=== PATIENT | female | born 1940 | race Caucasian/White ===

== ENCOUNTER 2018-09-29 09:00 | Outpatient (CLI) | payer MEDICARE ==
--- NOTE | 2018-09-29 09:47 | CT ---
CT ABDOMEN AND PELVIS: Date: 09/29/18 HISTORY: Unexplained weight loss, history of colitis, appendectomy, and hysterectomy. TECHNIQUE: Axial CT imaging at 5 mm intervals through abdomen and pelvis with IV and oral contrast. C oronal reformatted imaging. FINDINGS: The imaged lung bases are unremarkable. No free intraperitoneal air or fluid is evident. The liver, gallbladder, spleen, pancreas, adrenal glands, and kidneys demonstrate no acute findings. Scattered areas of mild bilateral renal cortical thinning noted. Mild scattered diverticulosis of the sigmoid colon noted with no evidence for diverticulitis. The bowel demonstrates no evidence for inflammatory change or obstruction. Calcification noted in the region of the aortic and mitral valve. There is scattered atherosclerotic calcification of the abdominal aorta and its branches. There is no lymphadenopathy evident within the abdomen or pelvis. There is multilevel degenerative change seen within the lumbar spine with multilevel disc space narro wing, degenerative endplate change, and lower lumbar spine facet hypertrophic change. IMPRESSION: No acute findings. Numerous incidental findings as above. Transcribed Date/Time: 09/29/2018 10:01 AM
== END 2018-09-29 09:01 | disposition home or self-care (01) ==
LOC: CT 09:00
PROVIDERS: ATTEND Physician Assistant Medical
DX: R63.4 Abnormal weight loss (principal); K52.831 Collagenous colitis; N28.89 Other specified disorders of kidney and ureter; K57.30 Diverticulosis of large intestine without perforation or abscess without bleeding; I08.0 Rheumatic disorders of both mitral and aortic valves; I70.0 Atherosclerosis of aorta; M47.816 Spondylosis without myelopathy or radiculopathy, lumbar region; M48.061 Spinal stenosis, lumbar region without neurogenic claudication
CPT/HCPCS: 74177; 82565

== ENCOUNTER 2020-01-07 15:10 | Observation (INO) | payer MEDICARE ==
[2020-01-07 17:01] LABS: #Basophils 0.1 thou/uL (0.0-0.2); #Eosinphils 0.1 thou/uL (0.0-0.7); #Lymphocytes 2.3 thou/uL (1.20-3.40); #Neutrophils 6.7 thou/uL (1.40-6.50); %Basophils 1.4 % (0.0-1.0); %Eosinophils 0.7 % (0.0-10.0); %Lymphocytes 22.9 % (21.0-51.0); %Monocytes 9.5 % (0.0-10.0); %Neutrophils 65.5 % (42.0-75.0); Hemoglobin 13.3 g/dL (12.0-16.0); Mean Corpuscular HGB CONC 32.3 g/dL (32.0-36.0); Mean Corpuscular Hemoglobin 29.6 pg (27.0-31.0); Mean Corpuscular Volume 91.5 fL (78.0-98.0); Mean Platelet Volume 8.3 fL (7.4-10.4); Platelet Count 224 thou/uL (130-400); RBC Distribution Width 12.5 % (11.5-14.5); White Blood Cell (WBC) Count 10.2 thou/uL (4.8-10.8)
[2020-01-07 17:18] LABS: ALT (SGPT) 14 U/L (8-55); AST (SGOT) 20 U/L (5-34); Albumin 4.1 g/dL (3.4-4.8); Alkaline Phosphatase 65 U/L (40-110); Anion Gap 16 mmol/L (10-20); BUN (Urea Nitrogen) 18 mg/dL (9.8-20.1); Bilirubin, Total 0.4 mg/dL (0.2-1.2); Calc. Creatinine Clearance 0 mL/min (70-130); Calcium 9.2 mg/dL (7.8-10.44); Carbon Dioxide 23 mmol/L (23-31); Chloride 102 mmol/L (98-107); Estimated GFR-MDRD 62; Globulin 2.8 g/dL (2.4-3.5); Glucose 105 mg/dL (83-110); Potassium 3.8 mmol/L (3.5-5.1); Protein, Total 6.9 g/dL (6.0-8.3); Sodium 137 mmol/L (136-145)
[2020-01-07] MEDS ORDERED: Nitroglycerin 2% Ointment 1 INCH/1 GM Packet ONE (17:32)
[2020-01-07] MEDS ORDERED: Aspirin Chewable 81 MG TAB ONE (17:33)
--- NOTE | 2020-01-07 17:53 | RAD ---
Chest AP view INDICATION: History of Covid exposure and dyspnea with shortness of breath COMPARISON: Prior exam dated October 31, 2013 FINDINGS: Lungs: The lungs are clear Cardiac silhouette: The cardiomediastinal silhouette appears within normal limits. Pulmonary vasculature: Normal Pleural spaces: No pleural effusion or pneumothorax is demonstrated. Upper abdomen: No abnormality seen. Osseous structures: There is scattered degenerative and osteoarthritic change present. Additional findings: None. IMPRESSION: No acute cardiopulmonary abnormality.
[2020-01-07 18:40] LABS: CK (CPK) 173 U/L (29-168); Lipase 30 U/L (8-78)
[2020-01-07] MEDS ORDERED: Ondansetron PF 4 MG/2 ML Vial IVP PRN (19:02)
[2020-01-07] MEDS ORDERED: Bisacodyl 5 MG TAB PO PRN (19:02)
[2020-01-07] MEDS ORDERED: Acetaminophen 325 MG TAB PO PRN (19:02)
--- NOTE | 2020-01-07 19:06 | PDOC.HHP ---
Hospitalist HPI - History of Present Illness Shortness of breath History of Present Illness: Patient is a pleasant 79-year-old lady who was seen in the emergency room on January 07, 2020. 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 She was found to have a pulse of 35. She is supposed to have a 2D echocardiogram in another 5 days. She reports that she was feeling short of breath earlier today. She also reports having low heart rate. She denies any falls. She does report feeling lightheaded. She denies any chest pain. She presented to the emergency room because of shortness of breath and the low heart rate. In the emergency room, her heart rate has been consistently in the normal range. She has been referred to hospitalist service for admission for observation and for cardiology service input. ED Course: BP: 150/80, MAP: 103, Pulse: 77, Resp: 18, Temp: 98.3 (Oral), Pain: 0, O2 sat: 98 on (Room Air), Time: 01/07/2020 18:57. Hospitalist ROS - Review of Systems Cardiovascular: reports: other (Low heart rate). denies: chest pain, palpitations, orthopnea, paroxysmal noc. dyspnea, edema, light headedness Gastrointestinal: denies: nausea, vomiting, abdominal pain, diarrhea, constipation, melena, hematochezia Neurological: reports: other (Lightheadedness) All other systems reviewed; all pertinent +/- noted in HPI/Subj - Medication Medications: Allergies: Amlodipine, iodine and penicillins. Home medications: lisinopril Sat Jan 07, 2020 15:36 Holm RN, Daniel TABLET : Strength - 40 mg : ORAL Patient Dose: 1 tab(s) Oral once a day. carvedilol Sat Jan 07, 2020 15:36 Holm RN, Daniel TABLET : Strength - 6.25 mg : ORAL Patient Dose: 2 tab(s) Oral 2 times a day. Synthroid oral Sat Jan 07, 2020 15:36 Holm RN, Daniel TABLET : Strength - 75 mcg : ORAL Patient Dose: 88 mcg Oral once a day. Paxil Sat Jan 07, 2020 15:36 Holm RN, Daniel TABLET : Strength - 30 mg : ORAL Patient Dose: 1 tab(s) Oral once a day. aspirin oral Sat Jan 07, 2020 15:36 Holm RN, Daniel TABLET : Strength - 325 mg : ORAL Patient Dose: 81 mg Oral once a day. Fish Oil 360 mg-1,200 mg capsule Sat Jan 07, 2020 15:36 Holm RN, Daniel CAPSULE (HARD, SOFT, ETC.) : Strength - 360 mg-1,200 mg : ORAL Patient Dose: 1200 mg Oral once a day. budesonide oral Sat Jan 07, 2020 15:36 Holm RN, Daniel capsule,delayed,extend.release : Strength - 3 mg : ORAL Patient Dose: 6 mg Oral once a day (in the morning). cloNIDine Sat Jan 07, 2020 15:37 Holm RN, Daniel patch weekly : Strength - 0.1 mg/24 hour : TRANSDERMAL Patient Dose: once a day (at bedtime). diclofenac sodium topical Sat Jan 07, 2020 15:37 Holm RN, Daniel gel : Strength - 1 % : TOPICAL Patient Dose: every 12 hours PRN. famotidine oral Sat Jan 07, 2020 15:37 Holm RN, Daniel tablet : Strength - 40 mg : ORAL Patient Dose: 2 times a day. furosemide oral Sat Jan 07, 2020 15:38 Holm RN, Daniel tablet : Strength - 20 mg : ORAL Patient Dose: Unknown.4X WEEK. Integra Sat Jan 07, 2020 15:38 Holm RN, Daniel capsule : Strength - 125 mg-40 mg-3 mg : ORAL Patient Dose: once a day. NIFEdipine Sat Jan 07, 2020 15:39 Holm RN, Daniel tablet extended release : Strength - 30 mg : ORAL Patient Dose: once a day. K-Dur Sat Jan 07, 2020 15:40 Holm RN, Daniel tablet,ER particles/crystals : Strength - 20 mEq : ORAL Patient Dose: once a day. tiZANidine Sat Jan 07, 2020 15:40 Holm RN, Daniel capsule : Strength - 4 mg : ORAL Patient Dose: once a day (at bedtime). Hospitalist History - Past Medical History Other Medical History: Patient is a pleasant 79-year-old lady who was seen in the emergency room on January 07, 2020. 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 She was found to have a pulse of 35. She is supposed to have a 2D echocardiogram in another 5 days. She reports that she was feeling short of breath earlier today. She also reports having low heart rate. She denies any falls. She does report feeling lightheaded. She denies any chest pain. She presented to the emergency room because of shortness of breath and the low heart rate. In the emergency room, her heart rate has been consistently in the normal range. She has been referred to hospitalist service for admission for observation and for cardiology service input. - Exam General Appearance: awake alert Eye: anicteric sclera ENT: normocephalic atraumatic, moist mucosa Neck: supple, symmetric, no thyromegaly, no lymphadenopathy Heart: RRR, no gallops, no rubs, normal peripheral pulses Respiratory: CTAB, no wheezes, no rales, no ronchi Gastrointestinal: soft, non-tender, non-distended, normal bowel sounds Extremities: no cyanosis Skin: no rashes Neurological: cranial nerve grossly intact Psychiatric: normal affect, normal behavior, A&O x 3 Hospitalist Results - Labs Result Diagrams: 01/07/20 16:46 01/07/20 16:46 Lab results: WBC 10.2 thou/uL (4.8-10.8) 01/07/20 16:46 Hgb 13.3 g/dL (12.0-16.0) 01/07/20 16:46 Hct 41.2 % (36.0-47.0) 01/07/20 16:46 MCV 91.5 fL (78.0-98.0) 01/07/20 16:46 Plt Count 224 thou/uL (130-400) 01/07/20 16:46 Neutrophils % 65.5 % (42.0-75.0) 01/07/20 16:46 Sodium 137 mmol/L (136-145) 01/07/20 16:46 Potassium 3.8 mmol/L (3.5-5.1) 01/07/20 16:46 Chloride 102 mmol/L (98-107) 01/07/20 16:46 Carbon Dioxide 23 mmol/L (23-31) 01/07/20 16:46 BUN 18 mg/dL (9.8-20.1) 01/07/20 16:46 Creatinine 0.88 mg/dL (0.6-1.1) 01/07/20 16:46 Glucose 105 mg/dL (83-110) 01/07/20 16:46 Calcium 9.2 mg/dL (7.8-10.44) 01/07/20 16:46 Total Bilirubin 0.4 mg/dL (0.2-1.2) 01/07/20 16:46 AST 20 U/L (5-34) 01/07/20 16:46 ALT 14 U/L (8-55) 01/07/20 16:46 Alkaline Phosphatase 65 U/L (40-110) 01/07/20 16:46 Creatine Kinase 173 U/L (29-168) H 01/07/20 18:10 Troponin I 0.018 ng/mL (< 0.028) 01/07/20 16:46 B-Natriuretic Peptide 222.3 pg/mL (0-100) H 01/07/20 18:10 Serum Total Protein 6.9 g/dL (6.0-8.3) 01/07/20 16:46 Albumin 4.1 g/dL (3.4-4.8) 01/07/20 16:46 Lipase 30 U/L (8-78) 01/07/20 18:10 - EKG Interpretation EKG: EKG by my review shows normal sinus rhythm with frequent premature ventricular complexes. - Radiology Interpretation Chest x-ray Status: image reviewed by me Additional Comment: Chest AP view INDICATION: History of Covid exposure and dyspnea with shortness of breath COMPARISON: Prior exam dated October 31, 2013 FINDINGS: Lungs: The lungs are clear Cardiac silhouette: The cardiomediastinal silhouette appears within normal limits. Pulmonary vasculature: Normal Pleural spaces: No pleural effusion or pneumothorax is demonstrated. Upper abdomen: No abnormality seen. Osseous structures: There is scattered degenerative and osteoarthritic change present. Additional findings: None. IMPRESSION: No acute cardiopulmonary abnormality. Hospitalist H&P A/P - Problem (1) Shortness of breath Code(s): R06.02 - SHORTNESS OF BREATH Status: Acute (2) Bradycardia Code(s): R00.1 - BRADYCARDIA, UNSPECIFIED Status: Acute (3) Dyslipidemia Code(s): E78.5 - HYPERLIPIDEMIA, UNSPECIFIED Status: Chronic (4) Crohn's disease Code(s): K50.90 - CROHN'S DISEASE, UNSPECIFIED, WITHOUT COMPLICATIONS Status: Chronic (5) Hypertension Code(s): I10 - ESSENTIAL (PRIMARY) HYPERTENSION Status: Chronic
[2020-01-08 04:51] LABS: #Basophils 0.1 thou/uL (0.0-0.2); #Eosinphils 0.1 thou/uL (0.0-0.7); #Monocytes 0.8 thou/uL (0.11-0.59); #Neutrophils 3.8 thou/uL (1.40-6.50); %Basophils 0.9 % (0.0-1.0); %Eosinophils 1.3 % (0.0-10.0); %Lymphocytes 29.6 % (21.0-51.0); %Monocytes 12.1 % (0.0-10.0); %Neutrophils 56.2 % (42.0-75.0); Mean Corpuscular HGB CONC 32.6 g/dL (32.0-36.0); Mean Corpuscular Hemoglobin 30.3 pg (27.0-31.0); Mean Corpuscular Volume 92.8 fL (78.0-98.0); Platelet Count 211 thou/uL (130-400); RBC Distribution Width 12.7 % (11.5-14.5); Red Blood Cell (RBC) Count 3.96 mill/uL (4.20-5.40); White Blood Cell (WBC) Count 6.8 thou/uL (4.8-10.8)
[2020-01-08 05:13] LABS: Anion Gap 11 mmol/L (10-20); BUN (Urea Nitrogen) 16 mg/dL (9.8-20.1); Calc. Creatinine Clearance 64 mL/min (70-130); Calcium 8.7 mg/dL (7.8-10.44); Carbon Dioxide 27 mmol/L (23-31); Chloride 106 mmol/L (98-107); Estimated GFR-MDRD 60; Glucose 95 mg/dL (83-110); Sodium 140 mmol/L (136-145)
[2020-01-08] MEDS ORDERED: VIT C PO SCH (09:00)
[2020-01-08] MEDS ORDERED: Loratadine 10 MG TAB PO SCH (09:00)
[2020-01-08] MEDS ORDERED: Lisinopril 20 MG TAB PO SCH (09:00)
[2020-01-08] MEDS ORDERED: Famotidine 20 MG TAB PO SCH (09:00)
[2020-01-08] MEDS ORDERED: Aspirin 81 mg Enteric Coated Tablet PO SCH (09:00)
[2020-01-08] MEDS ORDERED: Enoxaparin Sodium 40 MG/0.4 ML SYRINGE SC SCH (09:00)
[2020-01-08] MEDS ORDERED: IRON FUM PS CMP PO SCH (09:00)
[2020-01-08] MEDS ORDERED: NIACIN PO SCH (09:00)
[2020-01-08] MEDS ORDERED: FLU VACC QS2020-21(65YR UP)/PF 240 MCG/0.7 ML SYRINGE IM ONE (09:00)
[2020-01-08] MEDS ORDERED: Carvedilol 6.25 MG TAB PO SCH ×2 (12:00→17:00)
--- NOTE | 2020-01-08 12:26 | CON ---
DATE OF CONSULTATION: HISTORY OF PRESENT ILLNESS: The patient is 79-year-old woman, who presents with increasing dyspnea. The patient has a history of hypertension. . She was recently noted to have increasing ventricular ectopy. The patient denies having any lightheadedness or dyspnea. The patient presented to the emergency room with shortness of breath. She denied having any chest discomfort. The patient denied having any lightheaded or dizziness. PAST MEDICAL HISTORY: 1. Hypertension. 2. Thyroid disorder. 3. Depression. PAST SURGICAL HISTORY: Hysterectomy, foot surgery, shoulder surgery, cataract surgery, and carpal tunnel syndrome surgery. SOCIAL HISTORY: Nonsmoker. ALLERGIES: PENICILLIN AND AMLODIPINE. PHYSICAL EXAMINATION: GENERAL: Well-developed woman, in no acute distress. VITAL SIGNS: Blood pressure was 168/75. NECK: No jugular venous distention. LUNGS: Clear to auscultation. HEART: Regular rate and rhythm. Normal S1 and S2 with 2/6 systolic murmur. ABDOMEN: Nondistended. EXTREMITIES: Show no edema. VASCULAR: Radial pulses are 2+. LABORATORY DATA: Sodium 140, potassium 4.0, chloride 106, bicarbonate 27, BUN 16, creatinine 0.91, and glucose 60. white blood cell count was 6.8, hemoglobin 12.0, hematocrit 36.7, and platelets 211. EKG sinus rhythm with ventricular bigeminy and poor R-wave progression. Chest x-ray revealed normal cardiac silhouette with normal lung dan. IMPRESSION: 1. Shortness of breath. 2. Hypertension, poorly controlled. 3. Ventricular bigeminy. PLAN: This patient presented with bradycardia and dyspnea. She had ventricular bigeminy. From a cardiac standpoint. I would decrease the dose of her Coreg. 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 Job ID: [id number] [facility]
--- NOTE | 2020-01-08 15:18 | PDOC.DS.DS ---
Provider - Provider Date of Admission: 01/07/20 18:13 Date of Discharge: 01/08/20 Admitting Provider: Dave Briscoe MD Consultations: Cardiology Primary Care Physician: CAROL SETH MD Course - Hospital Course Hospital Course: Discharge diagnosis: 1. Symptomatic bradycardia 2. Shortness of breath Hospital course: Patient is a pleasant 79-year-old lady who was admitted to the hospital on January 07, 2020 for symptomatic bradycardia. She was monitored on telemetry. She did not have further episodes of bradycardia. She was seen by cardiology service. Her Coreg dose was decreased to 6.25 mg 2 times a day. She has been cleared for discharge by cardiology service. At the time of this dictation, her COVID-19 test result was pending. She is advised to follow-up with her primary care provider for the same. Many thanks for allowing me to participate in your patient's care. Please feel free to contact me with any questions or concerns. Resuscitation Status: 01/07/20 19:02 Resuscitation Status Routine Resuscitation Status: FULL: Full Resuscitation Discussed with: Patient - Labs Lab Results: 01/08/20 04:22 01/08/20 04:22 Abnormal Lab Results - Last 48 hrs 01/07/20 16:46: Basophils % 1.4 H, Neutrophils # 6.7 H, Monocytes # 1.0 H 01/07/20 18:10: B-Natriuretic Peptide 222.3 H 01/07/20 18:10: Creatine Kinase 173 H 01/08/20 04:22: RBC 3.96 L, Monocytes % 12.1 H, Monocytes # 0.8 H - Physical Exam Vitals: Vital Signs (12 hours) Temp Pulse Resp BP Pulse Ox 01/08/20 12:10 97.9 F 69 16 129/88 97 01/08/20 07:52 97.9 F 61 16 168/73 H 97 01/08/20 04:00 98.5 F 71 20 154/74 H 98 Weight Weight 175 lb Physical Exam: The patient was seen and examined on the day of discharge. She denies chest pain or shortness of breath. Vital signs are stable. S1 and S2 are heard, regular. Lungs are clear to auscultation bilaterally. Problem - Problem (1) Bradycardia Code(s): R00.1 - BRADYCARDIA, UNSPECIFIED Status: Acute (2) Dyslipidemia Code(s): E78.5 - HYPERLIPIDEMIA, UNSPECIFIED Status: Chronic (3) Crohn's disease Code(s): K50.90 - CROHN'S DISEASE, UNSPECIFIED, WITHOUT COMPLICATIONS Status: Chronic (4) Hypertension Code(s): I10 - ESSENTIAL (PRIMARY) HYPERTENSION Status: Chronic (5) Shortness of breath Code(s): R06.02 - SHORTNESS OF BREATH Status: Resolved Plan - Discharge Medications Prescriptions: Carvedilol [Coreg] 6.25 mg PO BID-WM #60 tab Home Medications: Medication Instructions Recorded Confirmed Type Aspirin [Ecotrin Low Strength] 81 mg PO DAILY 01/07/20 01/08/20 History Budesonide [Budesonide ER] 3 mg PO DAILY 01/07/20 01/08/20 History Famotidine 40 mg PO BID 01/07/20 01/08/20 History Fexofenadine HCl [Tash Allergy] 180 mg PO DAILY 01/07/20 01/08/20 History Fish Oil/DHA/EPA [Fish Oil 1,200 1 cap PO HS 01/07/20 01/08/20 History mg Fish Oil] Iron Fum,Ps Cmp/Vit C/Niacin 1 cap PO DAILY 01/07/20 01/08/20 History [Integra] Levothyroxine Sodium 88 mcg PO DAILY 01/07/20 01/08/20 History Lisinopril 40 mg PO DAILY 01/07/20 01/07/20 History NIFEdipine [Nifedipine ER] 30 mg PO HS 01/07/20 01/08/20 History PARoxetine HCl [Paxil] 30 mg PO HS 01/07/20 01/07/20 History Potassium Chloride [K-Dur] 20 meq PO PRN PRN 01/07/20 01/08/20 History Vit A/Vit C/Vit E/Zinc/Copper 2 tablet PO HS 01/07/20 01/08/20 History [PreserVision AREDS] cloNIDine [Catapres] 0.1 mg PO HS 01/07/20 01/08/20 History Carvedilol [Coreg] 6.25 mg PO BID-WM #60 tab 01/08/20 Rx Allergies: Penicillins Allergy (Intermediate, Verified 01/07/20 23:16) Rash shrimp Allergy (Intermediate, Verified 01/07/20 23:16) Nausea n/v amlodipine Allergy (Verified 01/07/20 23:16) not sure reaction iodine Allergy (Verified 01/07/20 23:16) allergic to shrimp- n/v; unsure about iodine clindamycin Adverse Reaction (Unknown, Verified 01/08/20 06:25) Diarrhea - Discharge Instructions Discharge Instructions:: Follow-up with your primary care provider for COVID-19 test result. Activity:: Activity as Tolerated Nourishment:: Heart Healthy Diet - Follow up Plan Referrals: CAROL SETH [Primary Care Provider] - 3 Days Disposition: HOME
[2020-01-08 16:49] VITALS: BP 137/67; TEMP 97.6
[2020-01-08] MEDS ORDERED: PARoxetine 20 MG TAB PO SCH (21:00)
[2020-01-08] MEDS ORDERED: cloNIDine 0.1 MG TAB PO SCH (21:00)
[2020-01-08] MEDS ORDERED: NIFEdipine XL 30 MG TAB PO SCH (21:00)
[2020-01-08] MEDS ORDERED: Multivit, Chewable SF 1 TAB PO SCH (21:00)
[2020-01-08] MEDS ORDERED: Fish Oil 1,000 MG CAP PO SCH (21:00)
[2020-01-09] MEDS ORDERED: Levothyroxine Sodium 88 MCG TAB PO SCH (06:00)
[2020-01-09 12:52] LABS: SARS-CoV-2 MS2 Positive; SARS-CoV-2 N Gene Negative; SARS-CoV-2 S Gene Negative; SARS-CoV-2 by NAA Not Detected (NotDetected); SARS-CoV-2 orf1ab Negative
== END 2020-01-08 16:50 | disposition home or self-care (01) ==
LOC: ERS 15:10 → ERHOLD 18:13 → 2NO 22:53
PROVIDERS: ADMIT Internal Medicine; ATTEND Internal Medicine
DX: R00.1 Bradycardia, unspecified (principal); R06.02 Shortness of breath; I10 Essential (primary) hypertension; E78.5 Hyperlipidemia, unspecified; K50.90 Crohn's disease, unspecified, without complications; R00.8 Other abnormalities of heart beat; E07.9 Disorder of thyroid, unspecified; F32.9 Major depressive disorder, single episode, unspecified; Z79.82 Long term (current) use of aspirin; Z79.899 Other long term (current) drug therapy; Z88.0 Allergy status to penicillin; Z88.1 Allergy status to other antibiotic agents; Z88.8 Allergy status to other drugs, medicaments and biological substances; Z91.013 Allergy to seafood; Z91.041 Radiographic dye allergy status; Z20.828 Contact with and (suspected) exposure to other viral communicable diseases
CPT/HCPCS: 71045; 80048; 82550; 83690; 83880; 84484; 85025; 85379; 93005; 96372; 99285; G0378 ×3; U0003; 36415; 80053; 84443; 87635; J1650

== ENCOUNTER 2020-08-02 12:20 | Outpatient (CLI) | payer MEDICARE ==
[2020-08-02 14:24] LABS: #Basophils 0.1 10x3/uL (0.0-0.2); #Eosinphils 0.1 10x3/uL (0.0-0.5); #Monocytes 0.9 10x3/uL (0.0-1.1); #Neutrophils 6.3 10x3/uL (1.5-8.4); %Basophils 0.7 % (0.0-2.0); %Eosinophils 1.4 % (0.0-6.0); %Lymphocytes 19.3 % (18.0-47.0); %Monocytes 9.3 % (0.0-10.0); %Neutrophils 68.9 % (40.0-75.0); Hemoglobin 12.5 g/dL (12.0-15.5); Mean Corpuscular HGB CONC 31.9 g/dL (32.0-36.0); Mean Platelet Volume 10.8 fl (7.4-10.4); Platelet Count 247 10x3/uL (150-450); RBC Distribution Width 13.3 % (11.5-14.5); Red Blood Cell (RBC) Count 4.31 10x6/uL (3.90-5.03); White Blood Cell (WBC) Count 9.2 10x3/uL (3.5-10.5)
[2020-08-02 14:36] LABS: Anion Gap 13 mmol/L (10-20); BUN (Urea Nitrogen) 15 mg/dL (9.8-20.1); Calc. Creatinine Clearance 0 mL/min (70-130); Calcium 9.6 mg/dL (7.8-10.44); Carbon Dioxide 27 mmol/L (23-31); Chloride 102 mmol/L (98-107); Glucose 89 mg/dL (83-110); Potassium 4.3 mmol/L (3.5-5.1); Sodium 138 mmol/L (136-145)
[2020-08-03 00:58] LABS: SARS-CoV-2 PCR by NAA Not Detected (NotDetected)
== END 2020-08-02 12:21 | disposition home or self-care (01) ==
LOC: LABBT 12:20
PROVIDERS: ATTEND Internal Medicine Cardiovascular Disease
DX: Z01.812 Encounter for preprocedural laboratory examination (principal); Z20.822 Contact with and (suspected) exposure to COVID-19; I48.19 Other persistent atrial fibrillation
CPT/HCPCS: 80048; 85025; U0003; U0005; 87635

== ENCOUNTER 2020-08-07 07:22 | Day surgery (SDC) | payer MEDICARE ==
[2020-08-07] MEDS ORDERED: PROPOFOL 20 ML ONE (11:17)
[2020-08-07] MEDS ORDERED: Lidocaine 1% PF 5 ML VIAL ONE (11:17)
== END 2020-08-07 12:50 | disposition home or self-care (01) ==
LOC: CCL 07:22
PROVIDERS: ATTEND Internal Medicine Cardiovascular Disease
PROC: 5A2204Z Restoration of Cardiac Rhythm, Single (ICD-10-PCS; principal; 2020-08-07)
DX: I48.19 Other persistent atrial fibrillation (principal); I49.3 Ventricular premature depolarization; I10 Essential (primary) hypertension; E78.00 Pure hypercholesterolemia, unspecified; I25.10 Atherosclerotic heart disease of native coronary artery without angina pectoris; E78.5 Hyperlipidemia, unspecified; Z79.01 Long term (current) use of anticoagulants; Z79.899 Other long term (current) drug therapy; Z88.0 Allergy status to penicillin; Z88.1 Allergy status to other antibiotic agents; Z88.8 Allergy status to other drugs, medicaments and biological substances; Z91.013 Allergy to seafood; Z91.041 Radiographic dye allergy status
CPT/HCPCS: 92960; J2704

== ENCOUNTER 2021-04-08 10:42 | Inpatient (IN) | payer MEDICARE ==
[~2021-04-08 10:42] MED LIST: Aspirin Chewable 81 MG TAB ONE; Heparin 10,000 UNITS/ 10 ML VIAL ONE; Iopamidol 370 76% 100 ML VIAL ONE; Iopamidol 370 76% 50 ML VIAL FS ONE
[2021-04-08] MEDS ORDERED: Diltiazem 125 MG/25 ML ONE (11:01)
[2021-04-08] MEDS ORDERED: Adenosine 6 MG/2 ML VIAL ONE ×2 (11:01→12:27)
[2021-04-08] MEDS ORDERED: Heparin 10,000 UNITS/ 10 ML VIAL ONE (11:37)
[2021-04-08] MEDS ORDERED: Midazolam HCl 2 mg/2 ml Vial ONE (11:42)
[2021-04-08] MEDS ORDERED: Atropine Sulfate 1 mg/1 ml Vial ONE (11:42)
[2021-04-08] MEDS ORDERED: Ondansetron PF 4 MG/2 ML Vial ONE ×2 (11:42→12:07)
[2021-04-08] MEDS ORDERED: Fentanyl 100 MCG/2 ML VIAL ONE (11:42)
[2021-04-08 11:44] LABS: #Eosinphils 0.1 thou/uL (0.0-0.7); #Lymphocytes 1.5 thou/uL (1.20-3.40); #Monocytes 0.5 thou/uL (0.11-0.59); #Neutrophils 9.5 thou/uL (1.40-6.50); %Basophils 0.2 % (0.0-1.0); %Eosinophils 0.5 % (0.0-10.0); %Lymphocytes 13.2 % (21.0-51.0); %Monocytes 4.3 % (0.0-10.0); %Neutrophils 81.8 % (42.0-75.0); Hemoglobin 12.8 g/dL (12.0-16.0); Mean Corpuscular HGB CONC 31.5 g/dL (32.0-36.0); Mean Corpuscular Hemoglobin 29.2 pg (27.0-31.0); Mean Corpuscular Volume 92.7 fL (78.0-98.0); Mean Platelet Volume 7.8 fL (7.4-10.4); Platelet Count 289 thou/uL (130-400); RBC Distribution Width 12.1 % (11.5-14.5); Red Blood Cell (RBC) Count 4.39 mill/uL (4.20-5.40); White Blood Cell (WBC) Count 11.6 thou/uL (4.8-10.8)
[2021-04-08 11:54] LABS: CRP (Inflammatory) 0.59 mg/dL (= or < 0.5)
[2021-04-08 12:05] LABS: ALT (SGPT) 12 U/L (8-55); AST (SGOT) 24 U/L (5-34); Albumin 4.3 g/dL (3.4-4.8); Alkaline Phosphatase 86 U/L (40-110); Anion Gap 13 mmol/L (10-20); BUN (Urea Nitrogen) 14 mg/dL (9.8-20.1); Bilirubin, Total 0.7 mg/dL (0.2-1.2); Calc. Creatinine Clearance 0 mL/min (70-130); Calcium 10.1 mg/dL (7.8-10.44); Carbon Dioxide 26 mmol/L (23-31); Chloride 102 mmol/L (98-107); Globulin 3.5 g/dL (2.4-3.5); Glucose 140 mg/dL (83-110); Potassium 3.7 mmol/L (3.5-5.1); Protein, Total 7.8 g/dL (5.8-8.1); Sodium 137 mmol/L (136-145)
[2021-04-08 12:06] LABS: INR-International Normal Ratio 1.2
[2021-04-08 12:07] LABS: PTT 40.2 sec (22.9-36.1)
[2021-04-08] MEDS ORDERED: Atropine Sulfate 1 mg/10 ml Syringe ONE (12:07)
[2021-04-08] MEDS ORDERED: Clopidogrel Bisulfate 300 MG TAB ONE (12:21)
[2021-04-08] MEDS ORDERED: Zolpidem Tartrate 5 MG TAB PO PRN (12:43)
[2021-04-08] MEDS ORDERED: Nitroglycerin 0.4 MG TAB (25 Tab Bottle) SL PRN (12:43)
[2021-04-08] MEDS ORDERED: Sodium Chloride 0.9% 1,000 ML IV SCH ×2 (12:45→17:27)
[2021-04-08] MEDS ORDERED: Morphine 4 MG/ML VIAL SLOW IVP PRN (13:02)
[2021-04-08 13:14] LABS: Cardiac Risk 2.8 (Less than 4.5)
[2021-04-08 13:48] LABS: CKMB 12.7 ng/mL (0-6.6)
[2021-04-08 14:18] VITALS: BMI 217.2
[2021-04-08 15:22] LABS: SARS-CoV-2 PCR by NAA Not Detected (NotDetected)
[2021-04-08] MEDS: Carvedilol 6.25 MG TAB PO SCH (17:14)
[2021-04-08 19:03] LABS: Troponin I 16.822 ng/mL (< 0.028)
[2021-04-08] MEDS: Famotidine 20 MG TAB PO SCH (20:52)
[2021-04-08] MEDS ORDERED: Atorvastatin Calcium 40 MG TAB PO SCH (21:00)
[2021-04-08] MEDS ORDERED: Spironolactone 25 MG TAB PO SCH (22:00)
[2021-04-08] MEDS ORDERED: Furosemide 20 MG/2 ML VIAL SLOW IVP SCH (22:00)
[2021-04-09 00:51] LABS: Troponin I 22.448 ng/mL (< 0.028)
[2021-04-09 04:11] LABS: #Lymphocytes 1.7 thou/uL (1.20-3.40); #Neutrophils 6.6 thou/uL (1.40-6.50); %Basophils 0.3 % (0.0-1.0); %Eosinophils 0.1 % (0.0-10.0); %Lymphocytes 17.8 % (21.0-51.0); %Monocytes 10.7 % (0.0-10.0); Hemoglobin 11.3 g/dL (12.0-16.0); Mean Corpuscular HGB CONC 32.1 g/dL (32.0-36.0); Mean Corpuscular Hemoglobin 29.9 pg (27.0-31.0); Mean Corpuscular Volume 92.9 fL (78.0-98.0); Mean Platelet Volume 7.5 fL (7.4-10.4); Platelet Count 267 thou/uL (130-400); RBC Distribution Width 12.2 % (11.5-14.5); Red Blood Cell (RBC) Count 3.77 mill/uL (4.20-5.40); White Blood Cell (WBC) Count 9.3 thou/uL (4.8-10.8)
[2021-04-09 04:27] LABS: ALT (SGPT) 20 U/L (8-55); AST (SGOT) 111 U/L (5-34); Albumin 3.7 g/dL (3.4-4.8); Alkaline Phosphatase 72 U/L (40-110); Anion Gap 11 mmol/L (10-20); BUN (Urea Nitrogen) 9 mg/dL (9.8-20.1); Bilirubin, Total 0.8 mg/dL (0.2-1.2); Calc. Creatinine Clearance 88 mL/min (70-130); Calcium 8.6 mg/dL (7.8-10.44); Carbon Dioxide 24 mmol/L (23-31); Chloride 104 mmol/L (98-107); Globulin 2.6 g/dL (2.4-3.5); Glucose 126 mg/dL (83-110); Potassium 3.7 mmol/L (3.5-5.1); Protein, Total 6.3 g/dL (5.8-8.1); Sodium 135 mmol/L (136-145)
[2021-04-09] MEDS ORDERED: NIFEdipine XL 60 MG TAB PO SCH (09:00)
[2021-04-09] MEDS ORDERED: Fentanyl 100 MCG/2 ML VIAL ONE ×2 (09:02→11:58)
[2021-04-09] MEDS: Enalaprilat Dihydrate 1.25 MG/ML VIAL SLOW IVP SCH ×2 (09:27→16:05)
[2021-04-09] MEDS: Clopidogrel Bisulfate 75 MG TAB PO SCH (09:28)
[2021-04-09] MEDS: Famotidine 20 MG TAB PO SCH ×2 (09:28→20:43)
[2021-04-09] MEDS: Carvedilol 6.25 MG TAB PO SCH ×2 (09:28→17:35)
[2021-04-09] MEDS: Aspirin Chewable 81 MG TAB PO SCH (09:28)
[2021-04-09] MEDS: Lisinopril 10 MG TAB PO SCH ×2 (09:57→20:42)
[2021-04-09] MEDS ORDERED: Fentanyl 100 MCG/2 ML VIAL SLOW IVP SCH ×2 (10:00→11:15)
[2021-04-09] MEDS ORDERED: Digoxin 0.5 MG/2 ML AMP ONE (11:40)
[2021-04-09] MEDS ORDERED: Protamine Sulfate 50 MG/5 ML VIAL ONE (11:52)
[2021-04-09] MEDS ORDERED: Heparin 5,000 UNITS/ML VIAL ONE (11:52)
[2021-04-09] MEDS ORDERED: Ondansetron PF 4 MG/2 ML Vial ONE (12:14)
[2021-04-09] MEDS ORDERED: Rocuronium Bromide 10 MG/ML (10ML VIAL) ONE (12:14)
[2021-04-09] MEDS ORDERED: Succinylcholine 200 MG/10 ml SYRINGE FS ONE (12:14)
[2021-04-09] MEDS ORDERED: Dexamethasone 20 MG/5 ML VIAL ONE (12:14)
[2021-04-09] MEDS ORDERED: Glycopyrrolate 0.2 MG/ML 5 ML SYRINGE ONE (12:14)
[2021-04-09] MEDS ORDERED: Lidocaine 1% PF 5 ML VIAL ONE (12:14)
[2021-04-09] MEDS ORDERED: Xylocaine 1% w/ Epi 1:100K 10 ML VIAL ONE (12:31)
[2021-04-09] MEDS ORDERED: Ondansetron PF 4 MG/2 ML Vial IVP PRN (13:14)
[2021-04-09] MEDS ORDERED: Fentanyl 100 MCG/2 ML VIAL SLOW IVP PRN (17:52)
[2021-04-09] MEDS ORDERED: Digoxin 0.5 MG/2 ML AMP SLOW IVP SCH (18:15)
[2021-04-09] MEDS: Sodium Chloride 0.9% 1,000 ML IV SCH (18:28)
[2021-04-09 18:34] LABS: #Lymphocytes 0.8 thou/uL (1.20-3.40); #Monocytes 0.4 thou/uL (0.11-0.59); #Neutrophils 14.1 thou/uL (1.40-6.50); %Basophils 0.2 % (0.0-1.0); %Eosinophils 0.1 % (0.0-10.0); %Lymphocytes 4.9 % (21.0-51.0); %Monocytes 2.4 % (0.0-10.0); %Neutrophils 92.4 % (42.0-75.0); Hemoglobin 8.8 g/dL (12.0-16.0); Mean Corpuscular HGB CONC 31.3 g/dL (32.0-36.0); Mean Corpuscular Hemoglobin 30.1 pg (27.0-31.0); Mean Corpuscular Volume 96.1 fL (78.0-98.0); Mean Platelet Volume 7.5 fL (7.4-10.4); Platelet Count 255 thou/uL (130-400); Red Blood Cell (RBC) Count 2.93 mill/uL (4.20-5.40); White Blood Cell (WBC) Count 15.2 thou/uL (4.8-10.8)
[2021-04-09] MEDS: Rosuvastatin 20 MG TAB PO SCH (20:43)
[2021-04-10] MEDS: Sodium Chloride 0.9% 1,000 ML IV SCH (06:21)
[2021-04-10] MEDS ORDERED: Digoxin 0.5 MG/2 ML AMP SLOW IVP SCH (08:45)
[2021-04-10] MEDS: Famotidine 20 MG TAB PO SCH ×2 (08:56→20:18)
[2021-04-10] MEDS: Clopidogrel Bisulfate 75 MG TAB PO SCH (08:56)
[2021-04-10] MEDS: Aspirin Chewable 81 MG TAB PO SCH (08:56)
[2021-04-10 09:24] LABS: Hemoglobin 7.2 g/dL (12.0-16.0); Mean Corpuscular HGB CONC 31.9 g/dL (32.0-36.0); Mean Corpuscular Hemoglobin 29.7 pg (27.0-31.0); Mean Corpuscular Volume 93.1 fL (78.0-98.0); Mean Platelet Volume 7.7 fL (7.4-10.4); Platelet Count 222 thou/uL (130-400); RBC Distribution Width 11.9 % (11.5-14.5); Red Blood Cell (RBC) Count 2.43 mill/uL (4.20-5.40); White Blood Cell (WBC) Count 15.1 thou/uL (4.8-10.8)
[2021-04-10 09:49] LABS: #Basophils 0.1 thou/uL (0.0-0.2); #Lymphocytes 2.2 thou/uL (1.20-3.40); #Monocytes 1.7 thou/uL (0.11-0.59); #Neutrophils 11.1 thou/uL (1.40-6.50); %Basophils 0.3 % (0.0-1.0); %Eosinophils 0.1 % (0.0-10.0); %Lymphocytes 14.8 % (21.0-51.0); %Monocytes 11.4 % (0.0-10.0); %Neutrophils 73.4 % (42.0-75.0); Band 6 % (5-11); Hypochromia SLIGHT = 6-15 cells (100X) (0-5/hpf); Lymphocytes 16 % (21-51); MDiff Complete? YES; Monocytes 8 % (0-10); Neutrophil 70 % (42-75); Platelet Morphology Comment Appears Adequate
[2021-04-10] MEDS: Carvedilol 6.25 MG TAB PO SCH (13:12)
[2021-04-10] MEDS: Acetaminophen 325 MG TAB PO PRN (15:40)
[2021-04-10] MEDS ORDERED: Furosemide 20 MG/2 ML VIAL SLOW IVP SCH (18:00)
[2021-04-10 18:35] LABS: #Basophils 0.1 thou/uL (0.0-0.2); #Eosinphils 0.1 thou/uL (0.0-0.7); #Lymphocytes 2.6 thou/uL (1.20-3.40); #Monocytes 1.9 thou/uL (0.11-0.59); #Neutrophils 9.7 thou/uL (1.40-6.50); %Basophils 0.7 % (0.0-1.0); %Eosinophils 0.4 % (0.0-10.0); %Monocytes 13.4 % (0.0-10.0); %Neutrophils 67.5 % (42.0-75.0); Hemoglobin 8.5 g/dL (12.0-16.0); Mean Corpuscular HGB CONC 33.2 g/dL (32.0-36.0); Mean Corpuscular Hemoglobin 31.7 pg (27.0-31.0); Mean Corpuscular Volume 95.6 fL (78.0-98.0); Mean Platelet Volume 7.7 fL (7.4-10.4); Platelet Count 201 thou/uL (130-400); RBC Distribution Width 12.1 % (11.5-14.5); Red Blood Cell (RBC) Count 2.66 mill/uL (4.20-5.40); White Blood Cell (WBC) Count 14.4 thou/uL (4.8-10.8)
[2021-04-10] MEDS: Rosuvastatin 20 MG TAB PO SCH (20:18)
[2021-04-11] MEDS: Acetaminophen 325 MG TAB PO PRN ×3 (02:31→21:00)
[2021-04-11 03:42] LABS: #Basophils 0.1 thou/uL (0.0-0.2); #Eosinphils 0.1 thou/uL (0.0-0.7); #Lymphocytes 1.8 thou/uL (1.20-3.40); #Monocytes 1.5 thou/uL (0.11-0.59); #Neutrophils 7.8 thou/uL (1.40-6.50); %Basophils 0.6 % (0.0-1.0); %Eosinophils 0.8 % (0.0-10.0); %Neutrophils 69.6 % (42.0-75.0); Hemoglobin 8.1 g/dL (12.0-16.0); Mean Corpuscular Volume 94.1 fL (78.0-98.0); Mean Platelet Volume 7.7 fL (7.4-10.4); Platelet Count 192 thou/uL (130-400); Red Blood Cell (RBC) Count 2.53 mill/uL (4.20-5.40); White Blood Cell (WBC) Count 11.2 thou/uL (4.8-10.8)
[2021-04-11 04:05] LABS: Digoxin 0.15 ng/mL (0.8-2.0)
[2021-04-11] MEDS: Famotidine 20 MG TAB PO SCH ×2 (07:47→20:59)
[2021-04-11] MEDS: Clopidogrel Bisulfate 75 MG TAB PO SCH (07:49)
[2021-04-11] MEDS: Aspirin Chewable 81 MG TAB PO SCH (07:50)
[2021-04-11] MEDS ORDERED: Potassium Chloride 20 MEQ TAB PO SCH (08:45)
[2021-04-11] MEDS ORDERED: Furosemide 20 MG/2 ML VIAL SLOW IVP SCH (08:45)
[2021-04-11] MEDS: Lisinopril 10 MG TAB PO SCH ×2 (11:00→20:59)
[2021-04-11] MEDS: Rosuvastatin 20 MG TAB PO SCH (20:59)
[2021-04-12 04:54] LABS: #Eosinphils 0.1 thou/uL (0.0-0.7); #Lymphocytes 1.5 thou/uL (1.20-3.40); #Monocytes 1.1 thou/uL (0.11-0.59); #Neutrophils 6.4 thou/uL (1.40-6.50); %Basophils 0.5 % (0.0-1.0); %Eosinophils 1.6 % (0.0-10.0); %Lymphocytes 16.5 % (21.0-51.0); %Monocytes 11.7 % (0.0-10.0); %Neutrophils 69.7 % (42.0-75.0); Hemoglobin 7.8 g/dL (12.0-16.0); Mean Corpuscular HGB CONC 33.3 g/dL (32.0-36.0); Mean Corpuscular Hemoglobin 31.7 pg (27.0-31.0); Mean Corpuscular Volume 95.2 fL (78.0-98.0); Mean Platelet Volume 7.8 fL (7.4-10.4); Platelet Count 216 thou/uL (130-400); RBC Distribution Width 12.2 % (11.5-14.5); Red Blood Cell (RBC) Count 2.47 mill/uL (4.20-5.40); White Blood Cell (WBC) Count 9.1 thou/uL (4.8-10.8)
[2021-04-12 05:12] LABS: Anion Gap 9 mmol/L (10-20); BUN (Urea Nitrogen) 8 mg/dL (9.8-20.1); Calc. Creatinine Clearance 99 mL/min (70-130); Calcium 8.3 mg/dL (7.8-10.44); Carbon Dioxide 30 mmol/L (23-31); Chloride 105 mmol/L (98-107); Glucose 105 mg/dL (83-110); Potassium 3.7 mmol/L (3.5-5.1); Sodium 140 mmol/L (136-145)
[2021-04-12] MEDS ORDERED: Potassium Chloride 20 MEQ TAB PO SCH (08:45)
[2021-04-12] MEDS ORDERED: Furosemide 20 MG/2 ML VIAL SLOW IVP SCH (08:45)
[2021-04-12] MEDS ORDERED: Lisinopril 10 MG TAB PO SCH (09:00)
[2021-04-12] MEDS: NIFEdipine XL 30 MG TAB PO SCH (09:13)
[2021-04-12] MEDS: Famotidine 20 MG TAB PO SCH ×2 (09:13→20:32)
[2021-04-12] MEDS: Aspirin Chewable 81 MG TAB PO SCH (09:13)
[2021-04-12] MEDS: Clopidogrel Bisulfate 75 MG TAB PO SCH (09:13)
[2021-04-12] MEDS: Lisinopril 20 MG TAB PO SCH ×2 (09:14→20:31)
[2021-04-12] MEDS: Acetaminophen 325 MG TAB PO PRN ×2 (09:14→20:32)
[2021-04-12] MEDS: Rosuvastatin 20 MG TAB PO SCH (20:31)
[2021-04-13 04:47] LABS: #Basophils 0.1 thou/uL (0.0-0.2); #Eosinphils 0.2 thou/uL (0.0-0.7); #Lymphocytes 1.3 thou/uL (1.20-3.40); #Monocytes 1.3 thou/uL (0.11-0.59); #Neutrophils 8.1 thou/uL (1.40-6.50); %Basophils 0.6 % (0.0-1.0); %Eosinophils 1.4 % (0.0-10.0); %Lymphocytes 12.3 % (21.0-51.0); %Monocytes 11.6 % (0.0-10.0); %Neutrophils 74.1 % (42.0-75.0); Mean Corpuscular HGB CONC 33.5 g/dL (32.0-36.0); Mean Corpuscular Hemoglobin 31.7 pg (27.0-31.0); Mean Corpuscular Volume 94.5 fL (78.0-98.0); Mean Platelet Volume 7.9 fL (7.4-10.4); Platelet Count 256 thou/uL (130-400); Red Blood Cell (RBC) Count 2.85 mill/uL (4.20-5.40); White Blood Cell (WBC) Count 10.9 thou/uL (4.8-10.8)
[2021-04-13 05:12] LABS: Anion Gap 10 mmol/L (10-20); BUN (Urea Nitrogen) 10 mg/dL (9.8-20.1); Calc. Creatinine Clearance 90 mL/min (70-130); Calcium 8.6 mg/dL (7.8-10.44); Carbon Dioxide 30 mmol/L (23-31); Chloride 104 mmol/L (98-107); Glucose 116 mg/dL (83-110); Potassium 4.3 mmol/L (3.5-5.1); Sodium 140 mmol/L (136-145)
[2021-04-13] MEDS ORDERED: Furosemide 20 MG TAB PO SCH (09:00)
[2021-04-13] MEDS: NIFEdipine XL 30 MG TAB PO SCH (09:53)
[2021-04-13] MEDS: Aspirin Chewable 81 MG TAB PO SCH (09:53)
[2021-04-13] MEDS: Clopidogrel Bisulfate 75 MG TAB PO SCH (09:55)
[2021-04-13] MEDS: Lisinopril 20 MG TAB PO SCH (09:55)
[2021-04-13] MEDS: Famotidine 20 MG TAB PO SCH (09:55)
[2021-04-13 12:53] VITALS: BP 103/57; TEMP 98.9
== END 2021-04-13 12:55 | disposition home or self-care (01) | DRG 247 ==
LOC: ERS 10:42 → CCL 12:37 → CCU 12:58 → 2NO 04-11 19:38
PROVIDERS: ADMIT Internal Medicine Cardiovascular Disease; ATTEND Internal Medicine Cardiovascular Disease
PROC: 027034Z Dilation of Coronary Artery, One Artery with Drug-eluting Intraluminal Device, Percutaneous Approach (ICD-10-PCS; principal; 2021-04-08)
PROC: 4A023N7 Measurement of Cardiac Sampling and Pressure, Left Heart, Percutaneous Approach (ICD-10-PCS; 2021-04-08)
PROC: B2151ZZ Fluoroscopy of Left Heart using Low Osmolar Contrast (ICD-10-PCS; 2021-04-08)
PROC: 04QK0ZZ Repair Right Femoral Artery, Open Approach (ICD-10-PCS; 2021-04-09)
PROC: 30233N1 Transfusion of Nonautologous Red Blood Cells into Peripheral Vein, Percutaneous Approach (ICD-10-PCS; 2021-04-10)
DX: I21.19 ST elevation (STEMI) myocardial infarction involving other coronary artery of inferior wall (principal); D68.32 Hemorrhagic disorder due to extrinsic circulating anticoagulants; I48.11 Longstanding persistent atrial fibrillation; I10 Essential (primary) hypertension; E03.9 Hypothyroidism, unspecified; M19.90 Unspecified osteoarthritis, unspecified site; I72.4 Aneurysm of artery of lower extremity; E78.5 Hyperlipidemia, unspecified; Z20.822 Contact with and (suspected) exposure to COVID-19; G47.33 Obstructive sleep apnea (adult) (pediatric); T45.515A Adverse effect of anticoagulants, initial encounter; Z90.710 Acquired absence of both cervix and uterus; Z98.42 Cataract extraction status, left eye; Z98.41 Cataract extraction status, right eye; Z88.0 Allergy status to penicillin; Z88.1 Allergy status to other antibiotic agents; Z91.041 Radiographic dye allergy status; Z88.8 Allergy status to other drugs, medicaments and biological substances; Z79.01 Long term (current) use of anticoagulants; Z79.899 Other long term (current) drug therapy
CPT/HCPCS: 36415; 36416; 36430; 76936; 80048; 80053; 80061; 80162; 82550; 82553; 83605; 83735; 83880; 84443; 84484; 85025; 85347; 85610; 85730; 86140; 86850; 86900; 86901; 92941; 93005; 93010; 93458; 93798; 94760; 96365; 96376; 97139; 99152; 99153; C1874; C9606; J0153; J0461; J1100; J1160; J1644; J1940; J2250; J2405; J2720; J3010; J7050; P9016; Q9967; U0003; U0005

== ENCOUNTER 2022-03-18 11:00 | Inpatient (IN) | payer MEDICARE ==
[2022-03-26] MEDS ORDERED: Heparin 10,000 UNITS/ 10 ML VIAL ONE (07:30)
[2022-03-26] MEDS ORDERED: Iopamidol 370 76% 100 ML VIAL ONE (09:01)
[2022-03-26] MEDS ORDERED: FENTANYL 50 MCG/ML 1 ML VIAL ONE (09:34)
[2022-03-26] MEDS ORDERED: SUGAMMADEX SODIUM 200 MG/2 ML VIAL ONE (09:35)
[2022-03-26] MEDS ORDERED: Ondansetron PF 4 MG/2 ML Vial ONE (09:50)
[2022-03-26] MEDS ORDERED: PROPOFOL 200 MG/20 ML VIAL ONE (09:50)
[2022-03-26] MEDS ORDERED: Rocuronium Bromide 10 MG/ML (10ML VIAL) ONE (09:50)
[2022-03-26] MEDS ORDERED: Lidocaine 1% PF 5 ML VIAL ONE (09:50)
[2022-03-26] MEDS ORDERED: Dexamethasone 20 MG/5 ML VIAL ONE (09:50)
[2022-03-26] MEDS ORDERED: Lidocaine 2% Jelly 5 ML TUBE ONE (11:05)
[2022-03-26] MEDS ORDERED: Protamine Sulfate 50 MG/5 ML VIAL ONE (11:05)
[2022-03-26] MEDS ORDERED: HYDROcodone/Acetaminophen 5/325 mg Tablet PO PRN ×2 (15:45)
[2022-03-26] MEDS ORDERED: Acetaminophen/Codeine 30-300mg Tablet PO PRN ×2 (15:45)
[2022-03-26] MEDS ORDERED: Acetaminophen 500 MG TAB ONE (16:15)
[2022-03-26] MEDS ORDERED: Acetaminophen 500 MG TAB PO PRN (16:34)
[2022-03-26] MEDS ORDERED: Rivaroxaban 15 MG TAB PO SCH (17:00)
[2022-03-26 19:24] VITALS: BMI 28.5
[2022-03-26] MEDS: Famotidine 20 MG TAB PO SCH (20:42)
[2022-03-26] MEDS: Lisinopril 20 MG TAB PO SCH (20:45)
[2022-03-26] MEDS ORDERED: PARoxetine 20 MG TAB PO SCH (21:00)
[2022-03-26] MEDS ORDERED: Rosuvastatin 20 MG TAB PO SCH (21:00)
[2022-03-26] MEDS ORDERED: Cholecalciferol 1,000 UNITS (25 MCG) TAB PO SCH (21:00)
[2022-03-27] MEDS ORDERED: Levothyroxine Sodium 88 MCG TAB PO SCH (06:00)
[2022-03-27] MEDS ORDERED: Furosemide 20 MG TAB PO SCH (09:00)
[2022-03-27] MEDS ORDERED: NIFEdipine XL 30 MG TAB PO SCH (09:00)
[2022-03-27] MEDS ORDERED: Clopidogrel Bisulfate 75 MG TAB PO SCH (09:00)
[2022-03-27] MEDS: Famotidine 20 MG TAB PO SCH (09:29)
[2022-03-27] MEDS: Lisinopril 20 MG TAB PO SCH (09:29)
[2022-03-27] MEDS ORDERED: Rivaroxaban 15 MG TAB PO SCH ×2 (11:00→17:00)
[2022-03-27 15:55] VITALS: BP 133/71; TEMP 98.1
== END 2022-03-27 17:34 | disposition home or self-care (01) | DRG 274 ==
LOC: SURG A 03-26 07:00 → 2SW 03-26 18:45
PROVIDERS: ADMIT Internal Medicine Cardiovascular Disease; ATTEND Internal Medicine Cardiovascular Disease
PROC: 02L73DK Occlusion of Left Atrial Appendage with Intraluminal Device, Percutaneous Approach (ICD-10-PCS; principal; 2022-03-26)
PROC: B24BZZ4 Ultrasonography of Heart with Aorta, Transesophageal (ICD-10-PCS; 2022-03-26)
DX: I48.19 Other persistent atrial fibrillation (principal); Z00.6 Encounter for examination for normal comparison and control in clinical research program; I10 Essential (primary) hypertension; E78.5 Hyperlipidemia, unspecified; I25.10 Atherosclerotic heart disease of native coronary artery without angina pectoris; E03.9 Hypothyroidism, unspecified; Z79.890 Hormone replacement therapy; Z79.51 Long term (current) use of inhaled steroids; Z79.899 Other long term (current) drug therapy; Z88.0 Allergy status to penicillin; Z91.013 Allergy to seafood; Z90.710 Acquired absence of both cervix and uterus
CPT/HCPCS: 33340; 85347; 86850; 86900; 86901; 93306; 93312; C1759; C1760; C1894; J1100; J1644; J2405; J2704; J2720; J3010; J3371; Q9967

== ENCOUNTER 2022-05-09 07:21 | Day surgery (SDC) | payer MEDICARE ==
[2022-05-07 14:12] VITALS: BMI 28.5
[2022-05-09 08:16] LABS: Hemoglobin 11.7 g/dL (12.0-16.0); Mean Corpuscular HGB CONC 31.6 g/dL (32.0-36.0); Mean Corpuscular Hemoglobin 30.1 pg (27.0-31.0); Mean Corpuscular Volume 95.3 fl (78.0-98.0); Mean Platelet Volume 7.6 fL (7.4-10.4); Platelet Count 238 10x3/uL (130-400); Red Blood Cell (RBC) Count 3.87 mill/uL (4.20-5.40)
[2022-05-09 08:35] LABS: Anion Gap 12 mmol/L (10-20); BUN (Urea Nitrogen) 15 mg/dL (9.8-20.1); Calc. Creatinine Clearance 68 mL/min (70-130); Calcium 9.1 mg/dL (7.8-10.44); Carbon Dioxide 26 mmol/L (23-31); Chloride 105 mmol/L (98-107); Estimated GFR 77; Glucose 91 mg/dL (83-110); Potassium 4.1 mmol/L (3.5-5.1); Sodium 139 mmol/L (136-145)
[2022-05-09] MEDS ORDERED: PROPOFOL 200 MG/20 ML VIAL ONE (09:39)
== END 2022-05-09 11:10 | disposition home or self-care (01) ==
LOC: SDC 07:21
PROVIDERS: ATTEND Internal Medicine Cardiovascular Disease
PROC: B246ZZ4 Ultrasonography of Right and Left Heart, Transesophageal (ICD-10-PCS; principal; 2022-05-09)
DX: I48.19 Other persistent atrial fibrillation (principal); I08.3 Combined rheumatic disorders of mitral, aortic and tricuspid valves; I70.0 Atherosclerosis of aorta; I25.2 Old myocardial infarction; I49.3 Ventricular premature depolarization; I10 Essential (primary) hypertension; E78.5 Hyperlipidemia, unspecified; G47.33 Obstructive sleep apnea (adult) (pediatric); I25.10 Atherosclerotic heart disease of native coronary artery without angina pectoris; Z79.02 Long term (current) use of antithrombotics/antiplatelets; Z79.890 Hormone replacement therapy; Z79.899 Other long term (current) drug therapy; Z88.0 Allergy status to penicillin; Z88.1 Allergy status to other antibiotic agents; Z88.8 Allergy status to other drugs, medicaments and biological substances; Z91.013 Allergy to seafood; Z91.041 Radiographic dye allergy status; Z95.818 Presence of other cardiac implants and grafts
CPT/HCPCS: 36415; 80048; 85027; 93312; J2704